=== PATIENT | male | born 1955 | race Caucasian/White ===

== ENCOUNTER 2016-06-06 08:30 | Inpatient (IN) | payer OTHER, BC ==
--- NOTE | 2016-06-02 15:26 | EKG ---
[facility] [address] [place] [address] Test Date: 2016-06-02 Test Time: 15:04:59 Pat Name: LULY MCELROY Department: Room: Gender: M [employer] Worker: : 1955 Requested By: SID MOSLEY Order Number: [id number] Reading MD: Americo Begum Measurements Intervals [place] Rate: 77 P: 48 MA: 150 QRS: 49 QRSD: 90 T: 50 QT: 370 QTc: 420 Interpretive Statements SINUS RHYTHM Electronically Signed On 06-13-2016 9:22:11 HEADING MAKER by Americo Begum
[~2016-06-06] VITALS: Ht 175.3 cm; Wt 89.4 kg
[~2016-06-06 08:30] MED LIST: ALBU8.5H6; ASPI-482; ATOR10TA; BIOT25005 PO; FLUT1DIS3; FLUT1DIS3 IH; GLIM2TAB2 PO; LISI10TA2; METF850T2; METH-38 PO; OXYC30TA21 PO; OXYC5CAP3 PO; PIOG1TAB15 PO; TIZA4TAB PO
[2016-09-16] MEDS ORDERED: SITA50TA PO (12:09)
[2016-09-16] MEDS ORDERED: OXYC1TAB9 PO (12:09)
[2016-09-16] MEDS ORDERED: MAGN400O4 PO (12:09)
[2016-09-16] MEDS ORDERED: METF-620 PO (12:09)
[2016-09-20] VITALS (10 sets, daily range): BP systolic 125–136; BP diastolic 67–76
[2016-09-20] MEDS ORDERED: BACITRACIN 50,000 UNIT in IV NORMAL SALINE 1000ML BAG 1,000 ML IRR ONE (06:00)
[2016-09-20] MEDS ORDERED: LIDOCAINE 1%/EPI 1:100,000 20 ML VIAL. ONE (06:49)
[2016-09-20] MEDS ORDERED: GELATIN SPONGE SIZE 100. ONE (06:49)
[2016-09-20] MEDS ORDERED: THROMBIN TOPICAL 20,000 UNIT SPRAY.SYRN KIT TP ONE (06:49)
[2016-09-20] MEDS ORDERED: BUPIVACAINE 0.5% 50 ML VIAL. ONE (06:49)
[2016-09-20] MEDS ORDERED: IV RINGERS,LACTATED 1000ML 1,000 ML IV SCH (07:00)
[2016-09-20] MEDS ORDERED: fentaNYL PF VIAL 100 MCG/2 ML VIAL IV PRN (07:00)
[2016-09-20] MEDS ORDERED: PROCHLORPERAZINE 10 MG/2 ML VIAL. IV PRN (07:00)
[2016-09-20] MEDS ORDERED: ONDANSETRON PF 4 MG/2 ML VIAL. IV PRN ×2 (07:00→15:00)
[2016-09-20] MEDS ORDERED: LIDOCAINE 1% 1 ML SYRINGE. ID PRN (07:00)
[2016-09-20 07:18] LABS: CALCIUM 9.3 mg/dL (8.5-10.1); CREATININE 1.1 mg/dL (0.7-1.3)
[2016-09-20 07:19] LABS: GFR 68.1; POTASSIUM 3.7 mmol/L (3.5-5.1)
[2016-09-20 07:24] LABS: ALBUMIN 3.6 g/dL (3.4-5.0); ALBUMIN/GLOBULIN RATIO 0.9 (1.0-1.7); TOTAL BILIRUBIN 0.4 mg/dL (0.2-1.0); TOTAL PROTEIN 7.5 g/dL (6.4-8.2)
[2016-09-20 07:25] LABS: BASO # 0.1 x10^3/uL (0.0-0.2); BASO % 1 % (0-3); EOS % 2 % (0-3); HEMATOCRIT 41.5 % (39.0-53.0); HEMOGLOBIN 13.5 g/dL (13.0-17.5); LYMPH # 2.6 x10^3/uL (1.0-4.8); LYMPH % 27 % (24-48); MEAN CORPUSCULAR HEMOGLOBIN 29 pg (25-35); MEAN CORPUSCULAR HGB CONC 33 g/dL (31-37); MEAN CORPUSCULAR VOLUME 90 fL (79-100); MONO % 9 % (0-9); NEUT % 61 % (31-73); PLATELET COUNT 240 x10^3/uL (140-400); RED CELL DISTRIBUTION WIDTH 13.2 % (11.5-14.5); WHITE BLOOD COUNT 9.6 x10^3/uL (4.0-11.0)
[2016-09-20 07:33] LABS: INR 1.1 (0.8-1.1); PROTHROMBIN TIME PATIENT 13.1 SEC (11.7-14.0)
[2016-09-20] MEDS ORDERED: PROPOFOL 100 ML IV ONE (07:55)
[2016-09-20] MEDS ORDERED: DESFLURANE > 120 MINUTES IH ONE (08:03)
[2016-09-20] MEDS ORDERED: ONDANSETRON PF 4 MG/2 ML VIAL. ONE (08:04)
[2016-09-20] MEDS ORDERED: MINERAL OIL/PETROLATUM,WHITE OPHTH OINT 3.5GM TUBE. ONE (08:04)
[2016-09-20] MEDS ORDERED: PROPOFOL 20 ML IV ONE (08:04)
[2016-09-20] MEDS ORDERED: ROCURONIUM 50 MG/5 ML VIAL. ONE (08:04)
[2016-09-20] MEDS ORDERED: DEXAMETHASONE SOD PHOS 20 MG/5 ML VIAL. ONE (08:04)
[2016-09-20] MEDS ORDERED: MIDAZOLAM HCL/PF 2 MG/2 ML VIAL. ONE (08:04)
[2016-09-20] MEDS ORDERED: REMIFENTANIL 2 MG VIAL. IV ONE ×2 (08:04→10:40)
[2016-09-20] MEDS ORDERED: fentaNYL PF VIAL 100 MCG/2 ML VIAL ONE ×2 (08:04→14:21)
[2016-09-20] MEDS ORDERED: LIDOCAINE 2% PF Vial for OR 5 ML VIAL. ONE (08:05)
[2016-09-20] MEDS ORDERED: 0.9 % SODIUM CHLORIDE 50 ML VIAL. IJ ONE (08:05)
--- NOTE | 2016-09-20 08:38 | RAD ---
CT of the lumbar spine without contrast, 09/20/2016: History: Back pain, radiculopathy, brain lab study Noncontrast scans were obtained with multiplanar reconstructions produced. The data was transferred to the operating room to aid in the patient's stereotactically guided surgery. The following findings are delineated: 1. The thecal sac throughout the lumbar spine is at the lower limits of normal in AP dimension, on a congenital basis. 2. At L4-5 there is moderate broad-based posterior disc bulging. There is a moderate density at and lateral to the left neural foraminal level compatible with protruding disc material versus scarring. There is mild posterior ligamentous thickening. The combination of findings is causing borderline central spinal stenosis with moderate left foraminal encroachment. 3. There is minimal posterior annular bulging at L5-S1. There are mild degenerative changes involving the facet joints. The central spinal canal and neural foramina are well maintained. 4. At L3-4 there is mild posterior disc bulging, more so on the left. There is only mild associated left foraminal narrowing. 5. No significant posterior disc bulge or protrusion is seen at L1-2 or L2-3. PQRS Compliance Statement: One or more of the following individualized dose reduction techniques were utilized for this examination: 1. Automated exposure control 2. Adjustment of the mA and/or kV according to patient size 3. Use of iterative reconstruction technique
[2016-09-20] MEDS ORDERED: PHENYLEPHRINE 10 MG/ML VIAL. ONE (09:24)
[2016-09-20] MEDS ORDERED: GLYCOPYRROLATE 1 MG/5 ML VIAL. ONE (09:40)
[2016-09-20] MEDS ORDERED: PROPOFOL 50 ML IV ONE ×2 (10:40→13:48)
[2016-09-20] MEDS ORDERED: ESMOLOL 100 MG/10 ML VIAL. IV ONE (12:37)
[2016-09-20] MEDS ORDERED: LABETALOL 20 MG/4 ML DISP.SYRIN. ONE (13:57)
--- NOTE | 2016-09-20 14:52 | PDOC ---
BRIEF OPERATIVE NOTE Date: September 20, 2016 Pre-Op Diagnosis recurrent disk herniation, lumbar stenosis, lumbar radiculopathy Post-Op Diagnosis same Procedure Performed Stereotactic left L4-5 laminectomy with foraminotomy and discectomy. Stereotactic posterolateral instrumented fusion L4-5 with anterior interbody fusion L4-5 via oblique lumbar interbody approach. Surgeon Teodoro Steward/Stewardess Wine none Anesthesia Type: General Blood Loss 50mL Specimens Obtained disk and decompression Findings stenosis in the lateral recess and neuroforamen left L4-5 due to scar tissue and disk material Complications none apparent Additional Remarks neuromonitoring remained baseline throughout the procedure SID MOSLEY MD September 20, 2016 14:52
[2016-09-20] MEDS: fentaNYL PF VIAL 100 MCG/2 ML VIAL IV PRN ×7 (14:59→20:53)
[2016-09-20] MEDS ORDERED: CALCIUM CARBONATE 500 MG TAB.CHEW PO PRN (15:00)
[2016-09-20] MEDS ORDERED: diphenhydrAMINE 50 MG/ML VIAL IV PRN (15:00)
[2016-09-20] MEDS ORDERED: MAG HYDROX/ALUMINUM HYD/SIMETH 30 ML ORAL.SUSP PO PRN (15:00)
[2016-09-20] MEDS ORDERED: oxyCODONE/APAP 7.5/325 1 TAB TABLET PO PRN (15:00)
[2016-09-20] MEDS ORDERED: NALOXONE 0.4 MG/ML VIAL. IV PRN (15:00)
[2016-09-20] MEDS ORDERED: ZOLPIDEM 5 MG TABLET. PO PRN (15:00)
[2016-09-20] MEDS ORDERED: diphenhydrAMINE HCL 25 MG CAPSULE PO PRN (15:00)
[2016-09-20] MEDS ORDERED: ACETAMINOPHEN 325 MG TABLET. PO PRN (15:00)
[2016-09-20] MEDS ORDERED: 0.9 % SODIUM CHLORIDE 10 ML DISP.SYRIN. IV PRN (15:00)
[2016-09-20] MEDS: MORPHINE SULFATE 2 MG/ML DISP.SYRIN. IV PRN ×3 (15:07→15:57)
[2016-09-20] MEDS ORDERED: INSULIN ASPART 100 UNIT/ML 10ML VIAL. SQ PRN (15:15)
[2016-09-20] MEDS: HYDROmorphone 2 MG/ML VIAL IV PRN ×4 (15:44→16:36)
[2016-09-20] MEDS: FERROUS SULFATE 325 MG TABLET. PO SCH (17:00)
[2016-09-20] MEDS: CALCIUM CARB/VIT D3 500/200 TABLET. PO SCH (17:00)
[2016-09-20] MEDS ORDERED: DEXTROSE 50% 25 GM / 50ML DISP.SYRIN. IV PRN ×2 (17:30)
[2016-09-20] MEDS: METHOCARBAMOL 750 MG TABLET PO SCH (20:51)
[2016-09-20] MEDS: DOCUSATE SODIUM 100 MG CAPSULE. PO SCH (21:00)
[2016-09-20] MEDS: SENNOSIDES/DOCUSATE 8.6/50MG TABLET. PO SCH (21:00)
[2016-09-20] MEDS ORDERED: ALBUTEROL SULFATE 2.5 MG/3 ML NEBU. NEB PRN (22:45)
[2016-09-21] MEDS: fentaNYL PF VIAL 100 MCG/2 ML VIAL IV PRN ×4 (00:25→08:16)
[2016-09-21 03:00] VITALS: BP 142/71
[2016-09-21] MEDS: oxyCODONE/APAP 7.5/325 1 TAB TABLET PO PRN ×2 (03:34→06:21)
[2016-09-21 06:00] VITALS: BP 124/64
[2016-09-21] MEDS: INSULIN ASPART 300 UNITS/3 ML INSULN.PEN SQ SCH ×3 (08:00→16:56)
[2016-09-21] MEDS: CALCIUM CARB/VIT D3 500/200 TABLET. PO SCH ×2 (08:00→16:26)
[2016-09-21] MEDS ORDERED: INSULIN ASPART 300 UNITS/3 ML INSULN.PEN SQ SCH (08:00)
[2016-09-21] MEDS: SENNOSIDES/DOCUSATE 8.6/50MG TABLET. PO SCH ×2 (08:16→20:14)
[2016-09-21] MEDS: LINAGLIPTIN 5 MG TABLET PO SCH (08:16)
[2016-09-21] MEDS: METHOCARBAMOL 750 MG TABLET PO SCH ×3 (08:16→20:15)
[2016-09-21] MEDS: DOCUSATE SODIUM 100 MG CAPSULE. PO SCH ×2 (08:16→20:15)
[2016-09-21] MEDS: FERROUS SULFATE 325 MG TABLET. PO SCH ×2 (08:16→16:26)
[2016-09-21] MEDS: MULTIVITAMIN with MINERAL TABLET. PO SCH (08:17)
--- NOTE | 2016-09-21 09:42 | PDOC ---
SUBJECTIVE Subjective Reports resolution of left leg pain. Reports bilateral thigh numbness. Reports incisional pain that is not completely controlled with present regimen. Back pain worse when in bed and better with ambulation. OBJECTIVE Vital Signs Vital Signs Date Time Temp Pulse Resp B/P (MAP) Pulse Ox O2 Delivery O2 Flow Rate FiO2 09/21/16 08:56 16 Room Air 09/21/16 08:45 16 Room Air 09/21/16 08:16 18 Room Air 09/21/16 08:00 Room Air 09/21/16 07:20 18 Nasal Cannula 3.0 09/21/16 06:21 20 92 Room Air 09/21/16 06:00 98.4 92 18 124/64 (84) 93 Room Air 98.4 09/21/16 06:00 95 2.0 09/21/16 05:17 20 94 Nasal Cannula 2.0 09/21/16 04:35 92 09/21/16 03:34 20 92 Room Air 09/21/16 03:00 98.2 96 18 142/71 (94) 92 Room Air 98.2 09/21/16 02:46 20 94 Room Air 09/21/16 00:25 20 94 Room Air 09/20/16 22:51 94 Room Air 09/20/16 22:45 97.7 95 18 134/70 (91) 94 Room Air 97.7 09/20/16 21:45 97.0 95 16 136/76 (96) 97 Nasal Cannula 3.0 97.0 09/20/16 20:53 20 Nasal Cannula 2.0 09/20/16 20:45 97.2 91 18 134/70 (91) 96 Nasal Cannula 3.0 97.2 09/20/16 20:15 86 18 132/67 (88) 97 Nasal Cannula 3.0 09/20/16 19:45 97.2 92 18 133/71 (91) 96 Nasal Cannula 3.0 97.2 09/20/16 19:30 Nasal Cannula 3.0 09/20/16 19:14 20 96 Nasal Cannula 2.0 09/20/16 18:15 99 18 130/72 (91) 98 Nasal Cannula 2.0 09/20/16 17:45 98.0 125/70 (88) 98.0 09/20/16 17:36 Nasal Cannula 2.0 09/20/16 17:30 100 18 133/74 (93) 99 Nasal Cannula 2.0 09/20/16 17:20 Nasal Cannula 2.0 09/20/16 17:15 129/71 (90) 09/20/16 17:00 97.5 103 20 134/74 (94) 99 Nasal Cannula 2.0 97.5 09/20/16 16:36 16 96 Nasal Cannula 3.0 09/20/16 16:31 97 16 120/69 96 Nasal Cannula 3.0 09/20/16 16:16 98.8 101 18 138/83 96 Nasal Cannula 3.0 98.8 09/20/16 16:06 16 96 Nasal Cannula 3.0 09/20/16 16:01 100 18 138/78 94 Nasal Cannula 3 09/20/16 15:57 18 96 Nasal Cannula 3.0 09/20/16 15:54 18 95 Nasal Cannula 3.0 09/20/16 15:49 Nasal Cannula 3 09/20/16 15:46 100 18 140/76 95 Nasal Cannula 3 09/20/16 15:44 18 97 Nasal Cannula 2.0 09/20/16 15:31 98.8 103 18 132/74 95 Nasal Cannula 2 98.8 09/20/16 15:27 18 94 Room Air 09/20/16 15:25 18 99 Room Air 09/20/16 15:18 18 99 Simple Mask 10.0 09/20/16 15:16 100 18 158/84 99 Simple Mask 10 09/20/16 15:07 18 99 Simple Mask 10.0 09/20/16 15:05 20 100 Simple Mask 10.0 09/20/16 15:01 98 18 155/95 99 Simple Mask 10 09/20/16 14:59 20 100 Simple Mask 10.0 09/20/16 14:46 98.6 103 20 167/96 99 Simple Mask 10 98.6 09/20/16 14:46 Mask 10 I & O Intake and Output 09/21/16 06:59 Intake Total 3070 ml Output Total 3375 ml Balance -305 ml Intake Oral 220 ml IV Total 2850 ml Output Urine Total 3325 ml Estimated Blood Loss 50 ml # Voids 1 PHYSICAL EXAM Physical Exam AAOx4, NAD, HARTMAN 5/5, dressing with sang stain ASSESSMENT/PLAN Assessment/Plan POD 1 decompression/fusion L4-5 -increase activities as able/PT/OT -adjusted pain regimen to optimize incisional pain control Problems: COMMENT Lab Laboratory Tests Test 09/20/16 14:53 09/20/16 16:54 09/20/16 20:43 09/21/16 06:23 Glucose (Fingerstick) 230 mg/dL (70-99) 215 mg/dL (70-99) 188 mg/dL (70-99) 189 mg/dL (70-99) SID MOSLEY MD September 21, 2016 09:42
[2016-09-21] MEDS ORDERED: oxyCODONE/APAP 10/325 1 TAB TABLET PO PRN (09:45)
[2016-09-21] MEDS ORDERED: MORPHINE SULFATE 4 MG/ML DISP.SYRIN. IV PRN (09:45)
[2016-09-21] MEDS ORDERED: MORPHINE SULFATE 2 MG/ML DISP.SYRIN. IV PRN (09:45)
[2016-09-21 11:09] VITALS: BP 130/70
[2016-09-21] MEDS: oxyCODONE/APAP 10/325 1 TAB TABLET PO PRN ×3 (12:09→20:16)
[2016-09-21 15:01] VITALS: BP 121/69
[2016-09-21 17:26] VITALS: BP 118/65
[2016-09-21 23:00] VITALS: BP 109/63
[2016-09-22] MEDS: oxyCODONE/APAP 10/325 1 TAB TABLET PO PRN ×2 (00:10→04:10)
[2016-09-22 03:03] VITALS: BP 119/70
[2016-09-22] MEDS: LINAGLIPTIN 5 MG TABLET PO SCH (07:45)
[2016-09-22] MEDS: SENNOSIDES/DOCUSATE 8.6/50MG TABLET. PO SCH ×2 (07:46→22:27)
[2016-09-22] MEDS: METHOCARBAMOL 750 MG TABLET PO SCH ×3 (07:46→22:26)
[2016-09-22] MEDS: FERROUS SULFATE 325 MG TABLET. PO SCH ×2 (07:52→16:06)
[2016-09-22] MEDS: CALCIUM CARB/VIT D3 500/200 TABLET. PO SCH ×2 (07:52→16:06)
[2016-09-22] MEDS: MULTIVITAMIN with MINERAL TABLET. PO SCH (07:53)
[2016-09-22] MEDS: INSULIN ASPART 300 UNITS/3 ML INSULN.PEN SQ SCH ×3 (07:53→17:00)
[2016-09-22] MEDS: DOCUSATE SODIUM 100 MG CAPSULE. PO SCH ×2 (07:56→22:26)
[2016-09-22] MEDS: oxyCODONE IR 5 MG TABLET PO PRN ×8 (09:05→22:27)
[2016-09-22] MEDS: MAGNESIUM HYDROXIDE 2,400 MG/30 ML ORAL.SUSP. PO PRN ×2 (09:05→19:00)
[2016-09-22 11:19] VITALS: BP 151/79
--- NOTE | 2016-09-22 12:07 | PDOC ---
SUBJECTIVE Subjective Late entry. Pt seen/examined approx 0830 09/22/16. Reports low back pain at incision, mild improved. Reports continued resolution of leg pain. Has worked with PT and reportedly did well with this. OBJECTIVE Vital Signs Vital Signs Date Time Temp Pulse Resp B/P (MAP) Pulse Ox O2 Delivery O2 Flow Rate FiO2 09/22/16 12:05 16 09/22/16 11:19 97.3 93 18 151/79 (103) 95 Room Air 97.3 09/22/16 09:05 20 09/22/16 08:00 Room Air 09/22/16 07:51 20 09/22/16 05:10 92 Room Air 3.0 09/22/16 04:10 92 Room Air 3.0 09/22/16 03:03 99.2 94 16 119/70 (86) 92 Room Air 99.2 09/22/16 00:10 18 97 Room Air 09/21/16 23:00 98.3 98 16 109/63 (78) 97 Room Air 98.3 09/21/16 21:20 18 09/21/16 20:16 18 Room Air 09/21/16 20:00 Room Air 3.0 09/21/16 17:26 99.4 86 18 118/65 (82) 97 Room Air 99.4 09/21/16 16:24 18 Room Air 09/21/16 15:01 97.9 93 20 121/69 (86) 96 Room Air 97.9 09/21/16 12:09 20 I & O Intake and Output 09/22/16 07:00 Intake Total 960 ml Output Total 450 ml Balance 510 ml Intake Oral 960 ml Output Urine Total 450 ml # Voids 4 PHYSICAL EXAM Physical Exam AAOx4, NAD, HARTMAN 09/02, incisions c/d/i, sensation intact LT ASSESSMENT/PLAN Assessment/Plan POD 2 lumbar decompression and fusion L4-5 -functionally doing well and continues to report resolution of pre-operative left leg pain -still with incisional pain not fully controlled with present regimen, incision sites look good -will adjust pain regimen - d/c when pain better controlled with oral regimen Problems: COMMENT Lab Laboratory Tests Test 09/21/16 16:52 09/21/16 20:15 09/22/16 07:11 09/22/16 11:04 Glucose (Fingerstick) 149 mg/dL (70-99) 148 mg/dL (70-99) 119 mg/dL (70-99) 117 mg/dL (70-99) SID MOSLEY MD September 22, 2016 12:07
[2016-09-22] MEDS ORDERED: BISACODYL 10 MG SUPP.RECT. PR PRN (16:00)
[2016-09-22 17:55] VITALS: BP 147/82
--- NOTE | 2016-09-22 19:21 | OP ---
DATE OF SURGERY: 09/20/2016 SURGEON: Thomas Mosley M.D. PREOPERATIVE DIAGNOSES: Recurrent lumbar disk herniation, lumbar stenosis and lumbar radiculopathy. POSTOPERATIVE DIAGNOSES: Recurrent lumbar disk herniation, lumbar stenosis and lumbar radiculopathy. ANESTHESIA: General. COMPLICATIONS: None intraprocedurally. PROCEDURE: Left lumbar 4-5 laminectomy with foraminotomy and diskectomy with a lumbar 4-5 posterolateral instrumented fusion utilizing autograft and allograft with lumbar 4-5 anterior interbody fusion via an oblique lumbar interbody approach utilizing a cage with allograft fusion substrate. Intraoperative use of microscope. Intraoperative use of stereotaxis with live neuro monitoring. INDICATIONS FOR THE PROCEDURE: The patient is a pleasant 60-year-old gentleman who had a previous far lateral diskectomy on the left lumbar 4-5 with resolution of left lower extremity pain. Over time, he has developed recurrence of this pain, has noted that he had adjacent stenosis more medially at lumbar 4-5 due to recurrent disk as well as scar tissue and adjacent neural foraminal stenosis. He has been refractory to multiple conservative treatments as well. Please refer to the patient chart for additional details. DESCRIPTION OF PROCEDURE: After informed consent was obtained, the patient was brought into the operating room. He was placed under general anesthesia. He was placed in the prone position on the Tad table. All pressure points were checked and padded appropriately. The lumbar region was prepped and draped in the usual sterile fashion. The local anesthetic was administered and the stereotactic array was attached percutaneously to the right iliac crest. A stereotactic 3D acquisition with the C-arm was obtained and this was fused to a prior stereotactic CT scan obtained prior to the procedure with good localization. The patient had a previous midline incision, which was reopened and extended slightly caudally to accommodate exposure for the fusion construct and decompression. Dissection was carried out with monopolar electrocautery through the avascular midline of the spinous processes of lumbar 4-5 and bilaterally across the lamina at these locations. A prior far lateral decompression was identified on the left and a careful dissection with curette was performed to identify the bony edges of the prior decompression. Stereotaxis was utilized as well as anatomical landmarks to plan the entry sites for pedicle screws bilaterally at lumbar 4 and bilaterally at lumbar 5. A pneumatic drill was utilized to decorticate the insertion site and a stereotactic awl was utilized with live neuro monitoring to produce the trajectory through the pedicles into the bodies bilaterally at lumbar 4 and bilaterally at lumbar 5. A ball tip probe was utilized to verify the integrity of the trajectory and the trajectories were further created with a tap. This was done with live neuro monitoring. Once the trajectories were tapped and verified with stereotaxis as well as gentle palpation with the ball tip probe, pedicle screws were instituted bilaterally at lumbar 4 and lumbar 5. NuVasive instrumentation was used on the left at lumbar 4 and on the right at lumbar 4, 6.5 x 50 mm screws were instituted. On the left at lumbar 5, a 6.5 x 45 mm screw was instituted and on the right at lumbar 5, a 6.5 x 40 mm screw was instituted. Prior to the institution of pedicle screws the adjacent lateral bony elements including the transverse processes were decorticated with a pneumatic drill. Bone marrow aspirate was taken from the left iliac crest utilizing stereotaxis. This was combined with allograft as a fusion substrate posterolaterally. This was instituted prior to the placement of 40 mm rods in each of screw construct. Upon completion of this, the left lumbar 4-5 laminectomy was performed with a pneumatic drill as well as a Kerrison rongeur. The underlying ligament was gently dissected free from the thecal sac and removed with a Kerrison rongeur. The laminectomy was carried out to the bony edge of the prior left L4-L5 far lateral decompression including a foraminotomy which required the adjacent facet to be taken down. Neural elements were identified and noted to be significantly incorporated with scar tissue. The scar tissue was gently dissected from the neural elements as able and removed with a Kerrison rongeur. Upon completion of this, the neural elements were noted to be well decompressed. A prominent disk annulus was identified and annulotomy was performed with 11-blade scalpel. Disk material was removed in a piecemeal fashion utilizing pituitary rongeur. Gentle dissection of disk material with a nerve hook was used to tease additional disk material posterolaterally and was removed with pituitary rongeur. Upon completion of this, the neural elements were noted to be very well decompressed, verified with direct visualization as well as gentle palpation with a Xander and a Lima ball probe. A 2 cm incision was planned laterally on the left after utilizing stereotaxis to plan an approach for oblique lumbar interbody graft placement. The stereotactic probe with the dilator was instituted in the trajectory anterior to the transverse process on the left at lumbar 4-5 to approach the disk space. Stimulation was instituted upon at the disk space and disk was noted to from the nerve based on the stimulation as well as direct visualization through the prior foraminotomy. The stereotactic probe was removed and a K-wire was instituted through the dilator and an additional dilator was passed over the K-wire into the disk space. A working channel was passed over the dilator after the K-wire was removed into the disk space and additional disk material was removed with pituitary rongeur as well as other instruments through the working channel. Once the diskectomy was complete, a trial was instituted into the disk space, a 9 mm trial was noted to be of appropriate size. Once this was complete, a PEEK interbody cage filled with allograft was instituted into the disk space utilizing live neuro monitoring, which remained baseline. The appropriate position of both the trial and the final interbody graft was verified with fluoroscopy. On completion of placement of the interbody graft and position verified with fluoroscopy, the graft was detached from the delivery system and left in the interbody space. The adjacent neural elements were again inspected to ensure adequate decompression. This was verified with direct visualization as well as gentle palpation with a Colquitt and a Lima ball. Upon completion of this, the posterior instrumentation was secured and final tightened with 40 mm rods in both screw heads and four set screws were instituted and torqued according to the nutrient management specialist's specification. Upon completion of this, fluoroscopy was utilized to verify appropriate position of the completed fusion construct including the posterolateral instrumentation in the interbody graft. Pristine hemostasis was achieved with FloSeal, cottonoids and some use of bipolar electrocautery. The wound was generously irrigated with antibiotic irrigation prior to the final closure. As an additional fusion substrate, the right lamina at lumbar 4-5 was decorticated with pneumatic drill and additional allograft bone that was remaining was instituted. Upon completion of these things, the muscles and fascia were then reapproximated with 0 Vicryl in a simple interrupted fashion. The subcutaneous tissues were reapproximated with 2-0 Vicryl in interrupted inverted fashion and the skin was reapproximated with 4-0 Vicryl in a running subcuticular fashion. The oblique incision was closed with 2-0 Vicryl in interrupted inverted fashion with 4-0 Vicryl in a running subcuticular fashion. The stereotactic reference array was detached and removed and the insertion sites were gently irrigated with antibiotic irrigation and reapproximated with Dermabond. At the end of the procedure, all needle and sponge counts were correct x 2. The patient was extubated in the operating room and taken to recovery in stable condition. There were no intraprocedural complications apparent. THOMAS MOSLEY MD DR: ARCENIO/ju JOB#: [id number] / [id number]
[2016-09-23] MEDS: oxyCODONE IR 5 MG TABLET PO PRN ×4 (01:50→11:32)
[2016-09-23 06:10] VITALS: BP 142/90
[2016-09-23] MEDS: FERROUS SULFATE 325 MG TABLET. PO SCH (07:40)
[2016-09-23] MEDS: CALCIUM CARB/VIT D3 500/200 TABLET. PO SCH (07:40)
[2016-09-23] MEDS: DOCUSATE SODIUM 100 MG CAPSULE. PO SCH (07:40)
[2016-09-23] MEDS: METHOCARBAMOL 750 MG TABLET PO SCH (07:40)
[2016-09-23] MEDS: LINAGLIPTIN 5 MG TABLET PO SCH (07:40)
[2016-09-23] MEDS: SENNOSIDES/DOCUSATE 8.6/50MG TABLET. PO SCH (07:41)
[2016-09-23] MEDS: MULTIVITAMIN with MINERAL TABLET. PO SCH (07:41)
[2016-09-23] MEDS: INSULIN ASPART 300 UNITS/3 ML INSULN.PEN SQ SCH ×2 (07:44→11:51)
--- NOTE | 2016-09-23 10:58 | PDOC ---
SUBJECTIVE Subjective Incisional pain better controlled. Was able to sleep more last night. Reports continued resolution of left leg pain. Has been ambulating frequently around unit. Had a bm. OBJECTIVE Vital Signs Vital Signs Date Time Temp Pulse Resp B/P (MAP) Pulse Ox O2 Delivery O2 Flow Rate FiO2 09/23/16 08:20 Room Air 09/23/16 07:40 Room Air 09/23/16 06:10 98.1 74 20 142/90 (107) 96 Room Air 98.1 09/23/16 06:09 20 Room Air 09/23/16 05:03 20 Room Air 09/23/16 01:50 18 Nasal Cannula 09/22/16 22:27 20 95 Room Air 09/22/16 20:30 Room Air 09/22/16 17:55 98.7 102 20 147/82 (103) 95 Room Air 98.7 09/22/16 15:57 95 Room Air 3.0 09/22/16 15:00 Room Air 09/22/16 15:00 20 09/22/16 14:01 20 09/22/16 12:05 16 09/22/16 11:19 97.3 93 18 151/79 (103) 95 Room Air 97.3 I & O Intake and Output 09/23/16 06:59 Intake Total 1120 ml Balance 1120 ml Intake Oral 1120 ml # Voids 10 PHYSICAL EXAM Physical Exam AAOx4, NAD, HARTMAN 5/5, sensation intact LT, dressing with some ss stain, otherwise dry/intact ASSESSMENT/PLAN Assessment/Plan POD 3 lumbar decompression/fusion L4-5 -overall continues to recover well -pain regimen adequate per pt -d/c home today -discussed continued aggressive bowel regimen upon d/c -rx provided as well -f/u 2 weeks with NS [phone] Problems: COMMENT Lab Laboratory Tests Test 09/22/16 11:04 09/22/16 16:46 09/23/16 06:09 Glucose (Fingerstick) 117 mg/dL (70-99) 141 mg/dL (70-99) 123 mg/dL (70-99) SID MOSLEY MD September 23, 2016 10:58
[2016-09-23 11:37] VITALS: BP 146/87
[2016-09-23] MEDS ORDERED: OXYC5TAB PO (11:42)
[2016-09-23] MEDS ORDERED: METH-38 PO (11:43)
[2016-09-23] MEDS ORDERED: SENN8.6T99 PO (11:46)
--- NOTE | 2016-09-23 16:26 | PATHOLOGY ---
PATHOLOGY REPORT * * * * * * * * FINAL DIAGNOSIS: Segments of fibrocartilaginous, fibroadipose, and skeletal muscle tissue and bone, lumbar disc and decompression: - Focal degenerative changes of fibrocartilaginous tissue. COMMENT: There is no evidence of an acute inflammatory process or malignancy. REPORT ELECTRONICALLY SIGNED BY: Dany Barnard M.D. DATE/TIME: 09/23/2016 16:25 * * * * * * * * GROSS PATHOLOGY: Received in formalin labeled "Scotty Mcelroy, lumbar decompression and disc," are multiple segments of barnhart rubbery and grated tissue measuring 3.5 x 3.2 x 0.8 cm in aggregate dimensions. The tissue is submitted representatively in cassette A1. (SNA; 09/22/2016) INITIAL CPT CODE(S): A; 91186 Professional services performed by [facility] [place] [address] Technical services performed by [facility] at [address] [place] [address], [facility] [address], [place] [address]. SPECIMEN(S) RECEIVED: A.Lumbar decompression and disc CLINICAL HISTORY: Low back pain, lumbar radiculopathy PATIENT: SCOTTY MCELROY /AGE: 7 1955 (Age: 60) PATIENT #: [id number] ALT CASE #: SPECIMEN COLLECTION DATE: 09/20/2016 SPECIMEN RECEIVED DATE: 09/21/2016 [facility] - [address] [place] [address] - PHONE: [phone] * * * END OF REPORT * * *
== END 2016-09-23 12:30 | disposition home or self-care (01) | DRG 455 ==
LOC: OPSVCIP 09-20 06:30 → 4 SOUTHEST 09-20 16:50
PROVIDERS: ADMIT Neurological Surgery; ATTEND Neurological Surgery
PROC: 0SG0071 Fusion of Lumbar Vertebral Joint with Autologous Tissue Substitute, Posterior Approach, Posterior Column, Open Approach (ICD-10-PCS; 2016-09-20)
PROC: 0SG00A0 Fusion of Lumbar Vertebral Joint with Interbody Fusion Device, Anterior Approach, Anterior Column, Open Approach (ICD-10-PCS; 2016-09-20)
PROC: 07DR3ZZ Extraction of Iliac Bone Marrow, Percutaneous Approach (ICD-10-PCS; 2016-09-20)
PROC: 4A11X4G Monitoring of Peripheral Nervous Electrical Activity, Intraoperative, External Approach (ICD-10-PCS; 2016-09-20)
PROC: 0SB20ZZ Excision of Lumbar Vertebral Disc, Open Approach (ICD-10-PCS; principal; 2016-09-20 08:30)
DX: M48.06 Spinal stenosis, lumbar region (principal); M51.16 Intervertebral disc disorders with radiculopathy, lumbar region; Z79.899 Other long term (current) drug therapy; Z79.1 Long term (current) use of non-steroidal anti-inflammatories (NSAID); J45.909 Unspecified asthma, uncomplicated
CPT/HCPCS: 36415; 72131; 76000; 80053; 82962; 83036; 85027; 85610; 85730; 86850; 86900; 86901; 87641; 88304; 93005; 94250; 94640; C1713; C1893; J0690; J0780; J1100; J1170; J1815; J2250; J2270; J2405; J2704; J3010; J3490; J7030; J7120; 97110; 97116

== ENCOUNTER → 2016-09-29 | Outpatient (CLI) | payer OTHER, BC ==
[2016-09-23 11:37] VITALS: BP 146/87
[~2016-09-29] MED LIST changes: +MAGN400O4 PO; +METF-620 PO; +OXYC1TAB9 PO; +OXYC5TAB PO; +SENN8.6T99 PO; +SITA50TA PO
--- NOTE | 2016-09-29 14:35 | RAD ---
Indication chronic pain. AP and lateral views of the lumbar spine were obtained as well as a coned view targeted to the lumbosacral junction. Spinal fixation cage with interbody fusion is noted at L4-5. No complication is seen. No acute bony finding is apparent.
== END | disposition home or self-care (01) ==
LOC: RAD 13:57
PROVIDERS: ATTEND Neurological Surgery
DX: M54.9 Dorsalgia, unspecified (principal); G89.29 Other chronic pain
CPT/HCPCS: 72100

== ENCOUNTER 2016-10-18 21:30 | Emergency (ER) | payer OTHER, BC ==
[~2016-10-18] VITALS: Ht 175.3 cm; Wt 89.4 kg
[~2016-10-18 21:30] MED LIST changes: -BIOT25005 PO; +BIOT25006 PO; -MAGN400O4 PO; +MAGN400O7 PO; +OXYC5CAP PO; -OXYC5CAP3 PO; -PIOG1TAB15 PO; +PIOG1TAB24 PO
[2016-10-18 21:40] VITALS: BP 136/79
[2016-10-18] MEDS ORDERED: ONDANSETRON ODT 4 MG TAB.RAPDIS. PO ONE (22:15)
[2016-10-18] MEDS ORDERED: KETOROLAC TROMETHAMINE 30 MG/ML INJ. IM ONE (22:15)
[2016-10-18] MEDS ORDERED: HYDROmorphone 2 MG/ML VIAL IV ONE (22:15)
[2016-10-18] MEDS ORDERED: CYCLOBENZAPRINE 10 MG TABLET. PO ONE (22:15)
[2016-10-18] MEDS ORDERED: HYDROmorphone 2 MG/ML VIAL IM ONE (22:30)
[2016-10-18] MEDS ORDERED: CYCL10TA2 PO (22:39)
--- NOTE | 2016-10-18 22:40 | PHYS DOC ---
Past Medical History Past Medical History: Diabetes-Type II, Kidney Stone Past Surgical History: Cervical Fusion, Cholecystectomy Additional Past Surgical Histo: LASIK, KNEE SURGERY, CATERACTS, HEART CATH Alcohol Use: None Drug Use: None Adult General Chief Complaint Chief Complaint: LOWER BACK PAIN OR INJURY HPI HPI Patient is a 60 year old gentleman with a history significant for back pain is status post a L5 L4 spinal fusion on September [address] Mosley presents to the ER today secondary to worsening pain. Patient reports that the pain he is having currently is identical to the pain usually has in the same location however it' s more severe than usual. Patient was the pain is in his left hip region and left buttock. Patient denies any fevers shakes chills nausea vomiting diarrhea chest pain or shortness of breath. Patient reports she's taken 3 of his OxyContin as well as Valium without any significant relief of the discomfort. It has a history of hypertension and asthma status post cholecystectomy. Patient has no known drug allergies. Patient does not smoke or drink. No liver lung or kidney problems. Patient reports no increased stress or increased activity. Patient reports he is supposed to start 0 therapy next week. Patient denies any loss of bowel or bladder function. Patient has any paresthesias around his scrotum her rectal area or perineal region. Patient's physical exam is unremarkable. He is alert awake and oriented 3. Neurological exam was nonfocal. Patient's motor strength is 5 out of 5. Sensory to light touch and pinprick. Patient has reproducible tenderness to palpation to his lower back and left side. Assessment and plan Acute exacerbation of chronic lower back pain. Patient's clinically hemodynamically stable. Patient will be discharged home on Flexeril. Patient feels much improved after the Dilaudid Flexeril and Toradol given in the ED. Review of Systems Review of Systems Constitutional: Denies fever or chills [] Eyes: Denies change in visual acuity, redness, or eye pain [] All other review systems are negative except as documented in the history of present illness portion.\ Current Medications Current Medications Current Medications Medications (Trade) Dose Ordered Sig/Thomas Start Time Stop Time Status Last Admin Dose Admin Cyclobenzaprine HCl (Flexeril) 10 mg 1X ONCE 10/18/16 22:15 10/18/16 22:16 DC 10/18/16 22:13 10 MG Hydromorphone HCl (Dilaudid) 1 mg 1X ONCE 10/18/16 22:30 10/18/16 22:31 DC 10/18/16 22:11 1 MG Ketorolac Tromethamine (Toradol) 30 mg 1X ONCE 10/18/16 22:15 10/18/16 22:16 DC 10/18/16 22:10 30 MG Ondansetron HCl (Zofran Odt) 4 mg 1X ONCE 10/18/16 22:15 10/18/16 22:16 DC 10/18/16 22:13 4 MG Allergies Allergies Allergies Coded Allergies Type Severity Reaction Last Updated Verified No Known Medication Allergies Allergy Unknown 09/20/16 Yes Physical Exam Physical Exam Constitutional: Well developed, well nourished, no acute distress, non-toxic appearance. [] HENT: Normocephalic, atraumatic, bilateral external ears normal, oropharynx moist, no oral exudates, nose normal. [] Eyes: PERRLA, EOMI, conjunctiva normal, no discharge. [] Neck: Normal range of motion, no tenderness, supple, no stridor. [] Cardiovascular:Heart rate regular rhythm, no murmur [] Lungs & Thorax: Bilateral breath sounds clear to auscultation [] Abdomen: Bowel sounds normal, soft, no tenderness, no masses, no pulsatile masses. [] Skin: Warm, dry, no erythema, no rash. [] Extremities: No tenderness, no cyanosis, no clubbing, ROM intact, no edema. [] Neurologic: Alert and oriented X 3, normal motor function, normal sensory function, no focal deficits noted. [] Psychologic: Affect normal, judgement normal, mood normal. [] Current Patient Data Vital Signs Vital Signs Date Time Temp Pulse Resp B/P (MAP) Pulse Ox O2 Delivery O2 Flow Rate FiO2 10/18/16 22:11 22 99 Room Air 10/18/16 21:40 98.2 105 136/79 (98) 98.2 EKG EKG [] Radiology/Procedures Radiology/Procedures [] Course & Med Decision Making Course & Med Decision Making Pertinent Labs and Imaging studies reviewed. (See chart for details) [] Dragon Disclaimer Dragon Disclaimer This electronic medical record was generated, in whole or in part, using a voice recognition dictation system. Departure Departure Impression: Primary Impression: Lumbar radiculopathy Disposition: HOME, SELF-CARE Condition: IMPROVED Referrals: NO PCP (PCP) SID MOSLEY MD Patient Instructions: Low Back Sprain with Rehab-[facility] Scripts Cyclobenzaprine Hcl (CYCLOBENZAPRINE HCL) 10 Mg Tablet 10 MG PO TID Y for MUSCLE PAIN, #20 TAB Prov: ANALY VEGA MD 10/18/16 ANALY VEGA MD Oct 18, 2016 22:40
== END 2016-10-18 22:57 | disposition home or self-care (01) ==
LOC: ER 21:30
DX: M54.16 Radiculopathy, lumbar region (principal); G89.29 Other chronic pain; M25.552 Pain in left hip; M54.89 Other dorsalgia; E11.9 Type 2 diabetes mellitus without complications; J45.909 Unspecified asthma, uncomplicated; I10 Essential (primary) hypertension; Z87.442 Personal history of urinary calculi; Z90.49 Acquired absence of other specified parts of digestive tract; Z98.1 Arthrodesis status
CPT/HCPCS: 96372; 99284; J1170; J1885; Q0162

== ENCOUNTER → 2016-10-31 | Outpatient (CLI) | payer OTHER, BC ==
[2016-10-18 21:40] VITALS: BP 136/79
[~2016-10-31] MED LIST changes: +CYCL10TA2 PO
--- NOTE | 2016-10-31 13:03 | RAD ---
Indication post lumbar fusion. AP and lateral views of the lumbar spine were obtained as well as a coned view targeted to the lumbosacral junction. Spinal fixation is noted at L4-5. No complication is seen. No acute bony finding is apparent. Vascular calcification is noted. IMPRESSION: Postop changes. No acute or unexpected finding seen
== END | disposition home or self-care (01) ==
LOC: RAD 12:06
PROVIDERS: ATTEND Neurological Surgery
DX: M54.5 Low back pain (principal)
CPT/HCPCS: 72100

== ENCOUNTER → 2016-11-16 | Outpatient (CLI) | payer OTHER, BC ==
[2016-10-18 21:40] VITALS: BP 136/79
[~2016-11-16] MED LIST changes: +GADOBUTROL 10 MMOL/10 ML VIAL IV ONE
--- NOTE | 2016-11-16 16:31 | KCIC ---
MRI Lumbar Spine without and with contrast History: Lumbar radiculopathy, left foot pain, previous surgeries, left foot numbness Technique: Multiplanar, multi sequential pre and postcontrast MR imaging was performed of the lumbar spine. Contrast: 8 cc Gadavist Comparison: July 03, 2015 Findings: There has been interval posterolateral fusion at L4-5 which there are now bilateral pedicle screws. Exam does not accurately evaluate integrity of hardware. There is now interbody graft L4-5. Lumbar vertebral body stature and AP alignment are maintained. Conus terminates at L1-2. There is mild fatty filum terminale. There is no nodular enhancement of the conus or cauda equina or in the intervertebral disc spaces. There is minimal edema of the L4-5 endplates about the interbody graft. There is overall mild narrowing of the L4-5 intervertebral disc space. L3-L4: Spinal canal and neural foramina are adequate. There is again negligible disc osteophyte complex. L4-L5: There is negligible disc osteophyte complex and bulge. There again has been partial left facetectomy. There is enhancing fibrosis at the anterior and inferior aspect of the left neural foramen with partial effacement of perineural fat surrounding the exiting left L4 nerve root. There is a shallow left extraforaminal protrusion without significant displacement of the exiting left L4 nerve root. Right neural foramen is not significantly narrowed. There is minimal narrowing of the far lateral recess as seen previously. L5-S1: Neural foramina and spinal canal are adequate. Impression: 1. There has been posterolateral fusion at L4-5. There is mild narrowing of the far left lateral recess at L4-5. There is enhancing fibrosis at the inferior margin of the left L4-5 neural foramen. There is shallow left extraforaminal protrusion L4-5 without significant displacement exiting left L4 nerve root. Electronically signed by: Maurisio Bryant MD (11/16/2016 4:28 PM) [email or web address]
== END | disposition home or self-care (01) ==
LOC: KCIC MRI 14:28
PROVIDERS: ATTEND Neurological Surgery
DX: M51.16 Intervertebral disc disorders with radiculopathy, lumbar region (principal)
CPT/HCPCS: 72158; 82565; A9585

== ENCOUNTER → 2017-01-30 | Outpatient (CLI) | payer OTHER, BC ==
[~2017-01-30] MED LIST changes: -GADOBUTROL 10 MMOL/10 ML VIAL IV ONE; -OXYC5TAB PO; +OXYC5TAB95 PO
--- NOTE | 2017-01-30 13:08 | RAD ---
Lumbar spine x-rays Indication: Lumbar fusion in August 2016 with complains of left anterior leg pain and numbness since surgery. Technique: 3 views of the lumbar spine Comparison: Previous study from 10/31/2016 Findings: 5 lumbar vertebral bodies. The lumbar spine is in normal anatomic alignment. Postsurgical changes from posterior fusion of L4-L5 vertebral bodies. There is no periprostatic lucency suggest loosening or fracture. No significant intervertebral disc space narrowing. Mild sclerosis of the endplates noted at multiple levels with small anterior osteophytes suggesting degenerative disc disease. Bilateral SI joints are within normal limits. Right upper quadrant clips suggesting cholecystectomy. Impression: Post surgical changes from L4-L5 posterior fusion. Mild multilevel degenerative disc disease. No significant change when compared to prior study from 10/31/2016. Please see report on MRI lumbar spine from 11/16/2016.
== END | disposition home or self-care (01) ==
LOC: RAD 12:37
PROVIDERS: ATTEND Neurological Surgery
DX: M51.16 Intervertebral disc disorders with radiculopathy, lumbar region (principal); R20.0 Anesthesia of skin
CPT/HCPCS: 72100

== ENCOUNTER → 2017-06-15 | Outpatient (CLI) | payer BC | END | disposition home or self-care (01) | LOC: RAD 11:12 | DX: M47.896 Other spondylosis, lumbar region (principal); M54.5 Low back pain; Z98.890 Other specified postprocedural states | CPT/HCPCS: 72100 ==

== ENCOUNTER → 2019-03-14 | Outpatient (CLI) | payer BC ==
[~2019-03-14] MED LIST changes: -GLIM2TAB2 PO; +GLIM2TAB3 PO; +IOHEXOL 180 MG/ML 10 ML VIAL. IT ONE; +LIDOCAINE 1% Multi-Dose 20 ML VIAL. ID ONE; -METF-620 PO; +METF10007 PO; -METF850T2; +METF850T8; +OXYC-411 PO; -OXYC1TAB9 PO; +OXYC5TAB4 PO; -OXYC5TAB95 PO; -TIZA4TAB PO; +TIZA4TAB2 PO
--- NOTE | 2019-03-14 16:05 | KCIC ---
CT lumbar spine exam History: Low back pain, left lumbar radiculopathy, previous back surgeries Technique: CT imaging was performed of the lumbar spine after injection for lumbar myelogram. Multiplanar reconstruction images are submitted. Exposure: One or more of the following individualized dose reduction techniques were utilized for this examination: 1. Automated exposure control 2. Adjustment of the mA and/or kV according to patient size 3. Use of iterative reconstruction technique. Comparison: November 16, 2016 Findings: There are bilateral pedicle screws L5 and L4 attached to vertical rods. There is L4-5 interbody graft although interbody fusion not apparent. Lumbar vertebral body stature is overall maintained. There is negligible anterior spondylolisthesis at L4-5. Conus terminates near L1-L2. There is mild lumbar levoscoliosis centered near L4-5. There is scattered atherosclerotic calcification of the abdominal aorta. T12-L1: Spinal canal and the neural foramina are adequate. L1-L2: Spinal canal and the neural foramina are adequate. There is mild facet degenerative change. L2-L3: Neural foramina and spinal canal are adequate. There is mild facet degenerative change. L3-L4: There is mild facet degenerative change. Spinal canal is adequate. Neural foramina are overall adequate. L4-L5: Spinal canal is adequate. There is postsurgical defect of the far left lateral lamina and facet. There is density in the inferior left neural foramen asymmetric with the right best seen image 50 series 4, not separable from the exiting left L5 nerve root. However appearance is fairly similar, again apparently protrusion in the very proximal left extraforaminal region near the undersurface of the exiting left L4 nerve root. There is mild narrowing of the left neural foramen due to facet and osteophyte. Right neural foramen is overall adequate. L5-S1: Spinal canal and the neural foramina are adequate. There is mild right facet hypertrophic change. Impression: 1. There is posterolateral fusion hardware and interbody graft at L4-5. There is no significant lumbar spinal stenosis. There is some density in the inferior left neural foramen inseparable from the exiting left L4 nerve root, uncertain if component of fibrosis or somewhat dilated nerve root, also apparently component of shallow protrusion in the very proximal left L4-5 extraforaminal region. There is mild narrowing of the left L4-5 neural foramen in part from facet osteophyte. There is mild lumbar levoscoliosis. Electronically signed by: Maurisio Bryant MD (03/14/2019 4:02 PM) [email or web address]
--- NOTE | 2019-03-15 07:54 | KCIC ---
Lumbar Myelogram History: Low back pain, left lumbar radiculopathy, previous surgeries Technique: Patient was informed of the risks of the procedure to include pain, infection, bleeding, seizures, nerve root injury, and allergic reaction to the contrast. All questions were answered. Patient signed a written consent form for a lumbar myelogram. The patient was placed in a prone oblique position on the fluoroscopy table. External site of the lower back was prepped and draped in the usual sterile fashion. Betadine was utilized for cleansing solution. 1% lidocaine was utilized for local anesthesia at the anticipated site of puncture right L2-3 interlaminar space. A 19-gauge guiding needle was advanced into the soft tissues. Through the guiding needle, a 25 gauge Oren needle was advanced until there was return of cerebral spinal fluid. Approximately 15 cc of Omnipaque 180 were then injected during fluoroscopic visualization. The needles were removed. Fluoroscopic spot images including standing images were acquired of the lumbar spine. The patient was then transferred to the CT department for CT examination of the lumbar spine. There were no immediate complications. Fluoroscopy time: 1 minute 6 seconds, 14 images Findings: There was no evidence of myelographic block. There is intact posterolateral fusion hardware with bilateral pedicle screws attached to vertical rods at L4-5, also L4-5 interbody graft. There is negligible anterior spondylolisthesis at L4-5 with flexion. There is very minimal anterior extradural defect at L4-5. There is atherosclerotic calcification of the abdominal aorta. Impression: 1. There is intact posterolateral fusion hardware at L4-5, also L4-5 interbody graft. There is negligible anterior spondylolisthesis at L4-5 with flexion. There is very minimal anterior extradural defect at L4-5. Electronically signed by: Maurisio Bryant MD (03/15/2019 7:51 AM) [email or web address]
--- NOTE | 2019-03-15 11:00 | KCIC ---
Examination: LUMBAR SPINE MIN 4V History: Low back pain, lumbar radiculopathy Comparison/Correlation: 06/15/2017 lumbar spine 3 view x-ray exam Findings: Total of 5 lumbar spine x-ray images were obtained including flexion and extension images. AP view, neutral lateral view, a neutral L5-S1 spot view were provided. Rods and associated pedicle screws are present at the L4-5 level. Interbody graft at this level is also present. Vertebral body heights are adequate. Alignment on flexion and extension imaging is mostly unremarkable. Minimal retrolisthesis of L3 in relation L4 is noted on flexion imaging as compared to the neutral and extension view. No fracture or bony destruction. There are right upper quadrant surgical clips. Impression: Minimal anterolisthesis of L3 in relation to L4 on flexion imaging. No significant change upon correlation with 06/15/2017 lumbar spine 3 view X ray exam. Electronically signed by: Pino Pearson MD (03/15/2019 10:57 AM) [facility]
== END | disposition home or self-care (01) ==
LOC: KCIC 13:39
PROVIDERS: ATTEND Neurological Surgery
DX: M51.16 Intervertebral disc disorders with radiculopathy, lumbar region (principal); M48.061 Spinal stenosis, lumbar region without neurogenic claudication; M25.78 Osteophyte, vertebrae; M43.16 Spondylolisthesis, lumbar region; M89.38 Hypertrophy of bone, other site; I70.0 Atherosclerosis of aorta; Z98.1 Arthrodesis status
CPT/HCPCS: 72110; 72132; 72265; Q9965

== ENCOUNTER 2019-09-03 08:10 | Emergency (ER) | payer BC ==
[~2019-09-03] VITALS: Ht 175.3 cm; Wt 90.0 kg
[~2019-09-03 08:10] MED LIST changes: -GLIM2TAB3 PO; +GLIM2TAB7 PO; -IOHEXOL 180 MG/ML 10 ML VIAL. IT ONE; -LIDOCAINE 1% Multi-Dose 20 ML VIAL. ID ONE
[2019-09-03 08:55] LABS: BASO # 0.1 x10^3/uL (0.0-0.2); BASO % 1 % (0-3); EOS # 0.4 x10^3/uL (0.0-0.7); EOS % 4 % (0-3); HEMOGLOBIN 14.9 g/dL (13.0-17.5); LYMPH # 2.3 x10^3/uL (1.0-4.8); LYMPH % 22 % (24-48); MEAN CORPUSCULAR HEMOGLOBIN 30 pg (25-35); MEAN CORPUSCULAR HGB CONC 34 g/dL (31-37); MEAN CORPUSCULAR VOLUME 89 fL (79-100); MONO # 0.9 x10^3/uL (0.0-1.1); MONO % 8 % (0-9); NEUT # 6.9 x10^3/uL (1.8-7.7); NEUT % 65 % (31-73); PLATELET COUNT 290 x10^3/uL (140-400); RED BLOOD COUNT 4.94 x10^6/uL (4.30-5.70); WHITE BLOOD COUNT 10.6 x10^3/uL (4.0-11.0)
[2019-09-03 08:57] LABS: BILIRUBIN,URINE NEGATIVE (NEG); CLARITY,URINE CLEAR; COLOR,URINE YELLOW; NITRITE,URINE NEGATIVE (NEG); PROTEIN,URINE NEGATIVE (NEG-TRACE); UROBILINOGEN,URINE 0.2 mg/dL (0.2 mg/dL)
[2019-09-03] MEDS ORDERED: KETOROLAC 30 MG/ML VIAL. IVP ONE (09:00)
[2019-09-03 09:04] LABS: CALCIUM 8.8 mg/dL (8.5-10.1); CREATININE 1.2 mg/dL (0.7-1.3); POTASSIUM 4.2 mmol/L (3.5-5.1)
[2019-09-03 09:06] LABS: BACTERIA,URINE 0 /HPF (0-FEW); SQUAMOUS EPITHELIAL CELL,UR OCC /LPF; WBC,URINE OCC /HPF (0-4)
[2019-09-03 09:06] LABS: PROTHROMBIN TIME PATIENT 12.2 SEC (11.7-14.0)
[2019-09-03] MEDS ORDERED: MORPHINE SULFATE 4 MG/ML VIAL. ONE (09:07)
[2019-09-03 09:10] LABS: ALBUMIN 3.9 g/dL (3.4-5.0); ALBUMIN/GLOBULIN RATIO 1.1 (1.0-1.7); TOTAL BILIRUBIN 0.4 mg/dL (0.2-1.0); TOTAL PROTEIN 7.6 g/dL (6.4-8.2)
--- NOTE | 2019-09-03 09:23 | RAD ---
Examination: CT of the abdomen pelvis without contrast HISTORY: History of left flank pain COMPARISON: 03/31/2013 TECHNIQUE: Axial CT images of the abdomen pelvis were performed without contrast. Coronal and sagittal reformats are performed Exposure: One or more of the following individualized dose reduction techniques were utilized for this examination: 1. Automated exposure control 2. Adjustment of the mA and/or kV according to patient size 3. Use of iterative reconstruction technique FINDINGS: Minimal right lung base atelectasis. No evidence of free air identified in the abdomen. The evaluation of the solid organs is limited due to lack of IV contrast. The evaluation of bowel is limited due to lack of oral contrast. The visualized noncontrasted liver, adrenals grossly appears unremarkable. Calcified granulomas identified in the spleen. Cholecystectomy changes. The stomach is mildly distended. The visualized pancreas grossly appears unremarkable. The small bowel is nondilated. Sigmoid colon diverticulosis. The visualized appendix grossly appears unremarkable. Urinary bladder is mildly distended. 3 mm intrarenal collecting system calculus identified in the left kidney. Mild left-sided hydronephrosis and hydroureter identified with a 5 mm calculus identified in the left uterovesical junction. Punctate 1 to 2 mm calculus identified in the right kidney. Moderate aortic atherosclerosis. Moderate degenerative changes thoracal lumbar spine. L4-L5 lumbar hardware identified. IMPRESSION: 1. 5 mm calculus identified in the left ureterovesical junction causing left-sided hydronephrosis and hydroureter. 2. Punctate bilateral intrarenal collecting system calculi. Electronically signed by: Tawanda Cerna MD (09/03/2019 9:19 AM) [id number]
[2019-09-03] MEDS ORDERED: ONDANSETRON PF 4 MG/2 ML VIAL. IVP ONE (09:30)
[2019-09-03] MEDS ORDERED: TAMSULOSIN 0.4 MG CAP.ER.24H. PO ONE (09:30)
[2019-09-03] MEDS ORDERED: fentaNYL PF VIAL 100 MCG/2 ML VIAL IVP ONE (09:30)
[2019-09-03] MEDS ORDERED: HYDROmorphone 2 MG/ML VIAL IV ONE ×2 (11:15→12:30)
[2019-09-03] MEDS ORDERED: IV NORMAL SALINE 1000ML BAG 1,000 ML IV ONE (12:15)
--- NOTE | 2019-09-03 13:11 | PHYS DOC ---
Past Medical History Past Medical History: Diabetes-Type II, Hypertension, Kidney Stone Past Surgical History: Cervical Fusion, Cholecystectomy Additional Past Surgical Histo: LASIK, KNEE SURGERY, CATERACTS, HEART CATH, ZURDO MBAR, R FOOT Smoking Status: Former Smoker Alcohol Use: None Drug Use: None General Adult EDM: Chief Complaint: URINARY RETENTION HPI: HPI: Patient is a 63 year old male who presented to ER today for evaluation of left side flank pain that radiated to his left groin area. Symptoms started last night. Patient tried to urinate, but very little come out. Patient history of kidney stone in the past. Patient denies any fever, no nausea vomiting. Pat ient denies any chest pain, no trouble breathing. Patient said he had not been exposed to anybody with POSITIVE COVID-19. Review of Systems: Review of Systems: Constitutional: Denies fever or chills. [] Eyes: Denies change in visual acuity. [] HENT: Denies nasal congestion or sore throat. [] Respiratory: Denies cough or shortness of breath. [] Cardiovascular: Denies chest pain or edema. [] GI: Positive for left flank pain, left groin area pain. No nausea or vomiting, no diarrhea. : Denies dysuria. Positive for scanty urination Musculoskeletal: Denies back pain or joint pain. [] Integument: Denies rash. [] Neurologic: Denies headache, focal weakness or sensory changes. [] Endocrine: Denies polyuria or polydipsia. [] Lymphatic: Denies swollen glands. [] Psychiatric: Denies depression or anxiety. [] Heart Score: Risk Factors: Risk Factors: DM, Current or recent (<one month) smoker, HTN, HLP, family history of CAD, obesity. Risk Scores: Score 0 - 3: 2.5% MACE over next 6 weeks - Discharge Home Score 4 - 6: 20.3% MACE over next 6 weeks - Admit for Clinical Observation Score 7 - 10: 72.7% MACE over next 6 weeks - Early Invasive Strategies Current Medications: Current Medications Medications (Trade) Dose Ordered Sig/Thomas Start Time Stop Time Status Last Admin Dose Admin Fentanyl Citrate (Fentanyl 2ml Vial) 50 mcg 1X ONCE 09/03/19 09:30 09/03/19 09:35 DC 09/03/19 09:39 50 MCG Hydromorphone HCl (Dilaudid) 1 mg 1X ONCE 09/03/19 12:30 09/03/19 12:31 DC 09/03/19 12:42 1 MG Ketorolac Tromethamine (Toradol 30mg Vial) 30 mg 1X ONCE 09/03/19 09:00 09/03/19 09:01 DC 09/03/19 09:00 30 MG Morphine Sulfate (Morphine Sulfate) 4 mg STK-MED ONCE 09/03/19 09:07 09/03/19 09:07 DC Ondansetron HCl (Zofran) 4 mg 1X ONCE 09/03/19 09:30 09/03/19 09:35 DC 09/03/19 09:38 4 MG Sodium Chloride 1,000 ml @ 1,000 mls/hr 1X ONCE 09/03/19 12:15 09/03/19 13:14 09/03/19 12:25 1,000 MLS/HR Tamsulosin HCl (Flomax) 0.4 mg 1X ONCE 09/03/19 09:30 09/03/19 09:35 DC 09/03/19 09:38 0.4 MG Allergies: Allergies: Allergies Coded Allergies Type Severity Reaction Last Updated Verified No Known Medication Allergies Allergy Unknown 09/20/16 Yes Physical Exam: PE: Constitutional: Well developed, well nourished, no acute distress, non-toxic appearance. [] HENT: Normocephalic, atraumatic, bilateral external ears normal, oropharynx moist, no oral exudates, nose normal. [] Eyes: PERRLA, EOMI, conjunctiva normal, no discharge. [] Neck: Normal range of motion, no tenderness, supple, no stridor. [] Cardiovascular:Heart rate regular rhythm, no murmur [] Lungs & Thorax: Bilateral breath sounds clear to auscultation [] Abdomen: Bowel sounds normal, soft, THERE IS tenderness TO PALPATION IN LLQ, no masses, no pulsatile masses. [] Skin: Warm, dry, no erythema, no rash. [] Back: No tenderness, there is left CVA tenderness. Extremities: No tenderness, no cyanosis, no clubbing, ROM intact, no edema. [] Neurologic: Alert and oriented X 3, normal motor function, normal sensory function, no focal deficits noted. [] Psychologic: Affect normal, judgement normal, mood normal. [] Current Patient Data: Labs: Laboratory Tests Test 09/03/19 08:12 09/03/19 08:26 Urine Collection Type Unknown Urine Color Yellow Urine Clarity Clear Urine pH 5.0 (<5.0-8.0) Urine Specific Hendricks 1.025 (1.000-1.030) Urine Protein Negative mg/dL (NEG-TRACE) Urine Glucose (UA) 100 mg/dL (NEG) Urine Ketones (Stick) Negative mg/dL (NEG) Urine Blood Large (NEG) Urine Nitrite Negative (NEG) Urine Bilirubin Negative (NEG) Urine Urobilinogen Dipstick 0.2 mg/dL (0.2 mg/dL) Urine Leukocyte Esterase Negative (NEG) Urine RBC 11-20 /HPF (0-2) Urine WBC Occ /HPF (0-4) Urine Squamous Epithelial Cells Occ /LPF Urine Bacteria 0 /HPF (0-FEW) Urine Mucus Mod /LPF White Blood Count 10.6 x10^3/uL (4.0-11.0) Red Blood Count 4.94 x10^6/uL (4.30-5.70) Hemoglobin 14.9 g/dL (13.0-17.5) Hematocrit 44.0 % (39.0-53.0) Mean Corpuscular Volume 89 fL (79-100) Mean Corpuscular Hemoglobin 30 pg (25-35) Mean Corpuscular Hemoglobin Concent 34 g/dL (31-37) Red Cell Distribution Width 13.0 % (11.5-14.5) Platelet Count 290 x10^3/uL (140-400) Neutrophils (%) (Auto) 65 % (31-73) Lymphocytes (%) (Auto) 22 % (24-48) L Monocytes (%) (Auto) 8 % (0-9) Eosinophils (%) (Auto) 4 % (0-3) H Basophils (%) (Auto) 1 % (0-3) Neutrophils # (Auto) 6.9 x10^3/uL (1.8-7.7) Lymphocytes # (Auto) 2.3 x10^3/uL (1.0-4.8) Monocytes # (Auto) 0.9 x10^3/uL (0.0-1.1) Eosinophils # (Auto) 0.4 x10^3/uL (0.0-0.7) Basophils # (Auto) 0.1 x10^3/uL (0.0-0.2) Prothrombin Time 12.2 SEC (11.7-14.0) Prothrombin Time INR 0.9 (0.8-1.1) Activated Partial Thromboplast Time 29 SEC (24-38) Sodium Level 141 mmol/L (136-145) Potassium Level 4.2 mmol/L (3.5-5.1) Chloride Level 102 mmol/L (98-107) Carbon Dioxide Level 30 mmol/L (21-32) Anion Gap 9 (6-14) Blood Urea Nitrogen 18 mg/dL (8-26) Creatinine 1.2 mg/dL (0.7-1.3) Estimated GFR (Cockcroft-Gault) 61.0 BUN/Creatinine Ratio 15 (6-20) Glucose Level 196 mg/dL (70-99) H Calcium Level 8.8 mg/dL (8.5-10.1) Total Bilirubin 0.4 mg/dL (0.2-1.0) Aspartate Amino Transferase (AST) 16 U/L (15-37) Alanine Aminotransferase (ALT) 29 U/L (16-63) Alkaline Phosphatase 89 U/L (46-116) Total Protein 7.6 g/dL (6.4-8.2) Albumin 3.9 g/dL (3.4-5.0) Albumin/Globulin Ratio 1.1 (1.0-1.7) Laboratory Tests 09/03/19 08:26 Laboratory Tests 09/03/19 08:26 Vital Signs: Vital Signs Date Time Temp Pulse Resp B/P (MAP) Pulse Ox O2 Delivery O2 Flow Rate FiO2 09/03/19 12:42 16 99 Room Air 09/03/19 11:30 72 09/03/19 08:24 98.6 181/89 (119) 98.6 EKG: EKG: [] Radiology/Procedures: Radiology/Procedures: [][facility] [address] [place] [address] IMAGING REPORT Signed PATIENT: LULY MCELROY ACCOUNT: [id number] : 1955 LOCATION: ER AGE: 63 SEX: M EXAM STATUS: REG ER ORD. PHYSICIAN: DEVAN PENNINGTON DO REASON: left flank pain PROCEDURE: CT ABDOMEN PELVIS WO CONTRAST Examination: CT of the abdomen pelvis without contrast HISTORY: History of left flank pain COMPARISON: 03/31/2013 TECHNIQUE: Axial CT images of the abdomen pelvis were performed without contrast. Coronal and sagittal reformats are performed Exposure: One or more of the following individualized dose reduction techniques were utilized for this examination: 1. Automated exposure control 2. Adjustment of the mA and/or kV according to patient size 3. Use of iterative reconstruction technique FINDINGS: Minimal right lung base atelectasis. No evidence of free air identified in the abdomen. The evaluation of the solid organs is limited due to lack of IV contrast. The evaluation of bowel is limited due to lack of oral contrast. The visualized noncontrasted liver, adrenals grossly appears unremarkable. Calcified granulomas identified in the spleen. Cholecystectomy changes. The stomach is mildly distended. The visualized pancreas grossly appears unremarkable. The small bowel is nondilated. Sigmoid colon diverticulosis. The visualized appendix grossly appears unremarkable. Urinary bladder is mildly distended. 3 mm intrarenal collecting system calculus identified in the left kidney. Mild left-sided hydronephrosis and hydroureter identified with a 5 mm calculus identified in the left uterovesical junction. Punctate 1 to 2 mm calculus identified in the right kidney. Moderate aortic atherosclerosis. Moderate degenerative changes thoracal lumbar spine. L4-L5 lumbar hardware identified. IMPRESSION: 1. 5 mm calculus identified in the left ureterovesical junction causing left-sided hydronephrosis and hydroureter. 2. Punctate bilateral intrarenal collecting system calculi. Electronically signed by: Tawanda Cerna MD (09/03/2019 9:19 AM) [id number] DICTATED and SIGNED BY: TAWANDA CERNA MD DATE: 09/03/19 0919 Course & Med Decision Making: Course & Med Decision Making Pertinent Labs and Imaging studies reviewed. (See chart for details) Patient is a 63-year-old male who was evaluated in the ER today due to left side abdominal pain, he was found to have kidney stone at the UVJ junction. Patient was able to urinate in the ED, his kidney function is normal. Patient will be discharged home, he will need to follow-up with her urologist. Patient is already on Percocet at home for back pain, he will be with prescribed Anaprox DS and Flomax for the kidney pain. Patient said he wants to go home and try to pass the stone at home. Love Disclaimer: Love Disclaimer: This electronic medical record was generated, in whole or in part, using a voice recognition dictation system. Departure Departure Impression: Primary Impression: Kidney stone on left side Disposition: HOME, SELF-CARE Condition: IMPROVED Referrals: ELLYN RIZZO DO (PCP) PLEASE CALL DR. ED JACKSON, UROLOGIST, PHONE NUMBER: [phone] for follow up this week. Patient Instructions: Kidney Stones Additional Instructions: Thank you for visiting our Emergency Department. We appreciate you trusting us with your care. If any additional problems come up don't hesitate to return to visit us. Please follow up with your primary care provider so they can plan additional care if needed and know about the problem that you had. If symptoms worsen come back to the Emergency Department. Any concerning symptoms that start such as chest pain, shortness of air, weakness or numbness on one side of the body, running high fevers or any other concerning symptoms return to the ER. TAKE YOUR PERCOCET AT HOME NEEDED FOR PAIN WELL. Scripts Tamsulosin Hcl (FLOMAX) 0.4 Mg Cap.er.24h 1 CAP PO DAILY, #20 CAP 11 Refills Prov: DEVAN PENNINGTON DO 09/03/19 Naproxen Sodium (ANAPROX DS) 550 Mg Tablet 1 TAB PO BID for pain for 15 Days, #30 TAB 0 Refills Prov: DEVAN PENNINGTON DO 09/03/19 DEVAN PENNINGTON DO September 03, 2019 13:11
[2019-09-03] MEDS ORDERED: NAPR-682 PO (13:19)
[2019-09-03] MEDS ORDERED: TAMS0.4C97 PO (13:19)
[2019-09-03 13:30] VITALS: BP 124/71
== END 2019-09-03 14:00 | disposition home or self-care (01) ==
LOC: ER 08:10
DX: N13.2 Hydronephrosis with renal and ureteral calculous obstruction (principal); R10.32 Left lower quadrant pain; R33.9 Retention of urine, unspecified; E11.9 Type 2 diabetes mellitus without complications; I10 Essential (primary) hypertension; Z90.49 Acquired absence of other specified parts of digestive tract; Z98.890 Other specified postprocedural states; Z87.891 Personal history of nicotine dependence; Z87.442 Personal history of urinary calculi
CPT/HCPCS: 36415; 74176; 80053; 81001; 85025; 85610; 85730; 96374; 96375; 96376; 99285; J1170; J1885; J2405; J3010; J7030

== ENCOUNTER 2020-01-16 09:07 | Emergency (ER) | payer BC ==
[~2020-01-16] VITALS: Ht 175.3 cm; Wt 87.6 kg
[~2020-01-16 09:07] MED LIST changes: +NAPR-682 PO; -OXYC-411 PO; +OXYC1TAB20 PO; +TAMS0.4C97 PO
--- NOTE | 2020-01-16 09:51 | PHYS DOC ---
Past Medical History Past Medical History: Diabetes-Type II, Hypertension, Kidney Stone, Other Additional Past Medical Histor: CHRONIC PAIN/SPINAL STENOSIS Past Surgical History: Cervical Fusion, Cholecystectomy Additional Past Surgical Histo: LASIK,KNEE SURGERY/FOOT/C-SPINE/BACK X 2 ,CATERACTS,HEART CATH,KIDNEY STONE Smoking Status: Former Smoker Alcohol Use: None Drug Use: None General Adult EDM: Chief Complaint: UPPER EXTREMITY PAIN HPI: HPI: 64-year-old male past medical history significant for diabetes, hypertension, chronic cervical and low back pain, presents to the ED with complaints of left arm pain described as [id number] that moves from his left anterior neck to shoulder down his arm x6 weeks stating "it's doing what it did before surgery." Now with decreased left hand (nondominant) sensation and numbness for the past 2 days. H/o cervical patient in 2001 by [facility], Dr. Turner. No new trauma to the neck. Patient states he talks oxycodone for his chronic neck pain- follows with pain management. No h/o CVA. Reports blurry vision with gabapentin jitteriness with Lyrica. H/o 2 lumbar surgeries. ROS: Denies any associated chest pressure or tightness, nausea, vomiting, trauma, weight loss, paralysis, saddle anesthesia, sore throat, cough, diaphoresis, night sweats, neck stiffness or headache. Review of Systems: Review of Systems: Constitutional: Denies fever or chills. [] Eyes: Denies change in visual acuity. [] HENT: Denies nasal congestion or sore throat. [] Respiratory: Denies cough or shortness of breath. [] Cardiovascular: Denies chest pain or edema. [] GI: Denies abdominal pain, nausea, vomiting, or diarrhea. [] : Denies dysuria. [] Musculoskeletal: Denies back pain or joint pain. [] Integument: Denies rash. [] Neurologic: Denies headache, Endocrine: Denies polyuria or polydipsia. [] Lymphatic: Denies swollen glands. [] Psychiatric: Denies depression or anxiety. [] Heart Score: Risk Factors: Risk Factors: DM, Current or recent (<one month) smoker, HTN, HLP, family history of CAD, obesity. Risk Scores: Score 0 - 3: 2.5% MACE over next 6 weeks - Discharge Home Score 4 - 6: 20.3% MACE over next 6 weeks - Admit for Clinical Observation Score 7 - 10: 72.7% MACE over next 6 weeks - Early Invasive Strategies Allergies: Allergies: Allergies Coded Allergies Type Severity Reaction Last Updated Verified No Known Medication Allergies Allergy Unknown 09/20/16 Yes Physical Exam: PE: Constitutional: Well developed, well nourished, no acute distress, non-toxic appearance. [] HENT: Normocephalic, atraumatic,no midline cervical ttp, cannot reproduce neck pain or radiculpathy, negative sterlings Eyes: EOMI, conjunctiva normal, no discharge. [] Neck: Normal range of motion, no tenderness, supple, no stridor. [] Cardiovascular:Heart rate regular rhythm, no murmur [] Lungs & Thorax: Bilateral breath sounds clear to auscultation [] Abdomen: Bowel sounds normal, soft, no tenderness, no masses, no pulsatile masses. [] Skin: Warm, dry, no erythema, no rash. [] Back: No tenderness, no CVA tenderness. [] Extremities: No tenderness, no cyanosis, no clubbing, ROM intact, no edema, full upper extremity radial pulses, 5 out of 5 equal upper extremity muscle strength Neurologic: Alert and oriented X 3, normal motor function, normal sensory function, no focal deficits noted. [] Psychologic: Affect normal, judgement normal, mood normal. [] Nexus criteria negative Current Patient Data: Vital Signs: Vital Signs Date Time Temp Pulse Resp B/P (MAP) Pulse Ox O2 Delivery O2 Flow Rate FiO2 01/16/20 09:09 98.6 17 198/90 (126) 100 Room Air 98.6 EKG: EKG: [] Sinus rhythm at 80 bpm, no axis deviation, normal intervals, no pathologic T wave inversions, no ST elevations or ST depressions, no pathologic Q waves Radiology/Procedures: Radiology/Procedures: IMAGING REPORT Signed PATIENT: LULY MCELROY ACCOUNT: [id number] : 1955 LOCATION: ER AGE: 64 SEX: M EXAM STATUS: REG ER ORD. PHYSICIAN: LIAN BARRAZA DO REASON: left arm pain-X 5-6 WKS H/O CERVICAL FUSION PROCEDURE: CT HEAD AND CERVICAL SPINE WO EXAM: CT head and cervical spine without contrast INDICATION: Left arm pain for 5-6 weeks. History of cervical fusion COMPARISON: None TECHNIQUE: Axial CT imaging through the head and cervical spine without intravenous contrast. Sagittal and coronal reformats of the cervical spine were obtained. One or more of the following individualized dose reduction techniques were utilized for this examination: 1. Automated exposure control 2. Adjustment of the mA and/or kV according to patient size 3. Use of iterative reconstruction technique. FINDINGS: CT head: The ventricles and sulci are normal. White-white matter differentiation is maintained. There is no intracranial hemorrhage, acute infarct, or mass lesion. Basal cisterns are clear. The skull and scalp are intact. Minimal mucosal thickening in the paranasal sinuses. Mastoid air cells are clear.. Globes and orbits are intact. CT cervical spine: No acute fracture. Alignment is normal. There are surgical changes of ACDF at C5-C6. Plate and screws are intact. Interbody graft is well incorporated. Mild disc space narrowing at C6-C7 and small marginal osteophytes throughout the cervical spine. Mild to moderate left and mild right foraminal narrowing at C5-C6 and mild left foraminal narrowing at C6-C7 related to uncovertebral joint proliferation. Mild facet arthrosis at C5-C6 and C6-C7. No bony canal narrowing. Prevertebral soft tissue is normal. There are calcifications in the carotid bifurcation. IMPRESSION: 1. No acute intracranial abnormality. 2. No acute osseous abnormality of the cervical spine. Uncomplicated anterior cervical fusion at C5-C6. 3. Mild to moderate left foraminal narrowing at C5-C6. Electronically signed by: Glenny Irwin MD (01/16/2020 11:03 AM) [id number] DICTATED and SIGNED BY: GLENNY IRWIN MD DATE: 01/16/20 1103 Course & Med Decision Making: Course & Med Decision Making Pertinent Labs and Imaging studies reviewed. 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 Muscle strength, reflexes and pulses, no upper extremity edema. Will benefit from nonemergent MRI as an outpatient. Reports he has an appointment with his neurosurgeon Dr. Crawford tomorrow morning. Also recommended patient to start NSAIDs and he will contact his pain management doctor regarding his opioid medications/increasing frequency. States he has muscle relaxers at home. Neuropathic medications he has an adverse effect to. Strict ED return precautions were given for paralysis facial droop or speech changes. Encouraged urgent outpatient follow-up with PMD and neurosurgery. Life-threatening processes were considered but are low suspicion at this time, given history and physical exam. Pt was educated on all prescription medications and adverse effects. All patient's questions were answered and pt was stable at time of discharge. Differential includes sarah's angina, peritonsillar abscess, retropharyngeal abscess, epiglottitis, bacterial tracheitis, uvulitis, sepsis, mastoiditis, traumatic injury, carotid/vertebral dissection, intracranial aneurysms or neurologic process, cord compression or VIDHYA. I spoken with the patient and her caregivers. I explained the patient's condition, diagnoses and treatment plan based on the information available to me at this time. I have answered the patient and her caregiver's questions and addressed any concerns. The patient and her caregivers have a good understanding of patient's diagnosis, condition and treatment plan as can be expected at this point. Vital signs have been stable. Patient's condition is stable and appropriate for discharge from the emergency department. Patient will pursue further outpatient evaluation with primary care physician or other designated or consulting physician as outlined in the discharge instructions. The patient and/or caregivers are agreeable to this plan of care and follow-up instructions have been explained in detail. The patient and/or caregivers have received these instructions in written form and have expressed an understanding of the discharge instructions. The patient and/or caregivers are aware that any significant change of condition or worsening of symptoms should prompt immediate return to this or the closest emergency department or call to 911. Love Disclaimer: Love Disclaimer: This electronic medical record was generated, in whole or in part, using a voice recognition dictation system. Departure Departure Impression: Primary Impression: Foraminal stenosis of cervical region Additional Impression: Neck pain Disposition: 01 HOME, SELF-CARE Condition: STABLE Referrals: ELLYN RIZZO DO (PCP) Patient Instructions: Cervical Radiculopathy Additional Instructions: Dr. Crawford or Geoffrey Caceres MD Primary Specialties Neurological Surgery [facility] Address: [address] [address] Justicifation of Admission Dx: Justifications for Admission: Justification of Admission Dx: N/A LIAN BARNHART DO Jan 16, 2020 09:51
[2020-01-16 09:54] LABS: BASO # 0.1 x10^3/uL (0.0-0.2); BASO % 1 % (0-3); EOS # 0.4 x10^3/uL (0.0-0.7); EOS % 4 % (0-3); HEMATOCRIT 41.4 % (39.0-53.0); LYMPH % 19 % (24-48); MEAN CORPUSCULAR HEMOGLOBIN 31 pg (25-35); MEAN CORPUSCULAR HGB CONC 34 g/dL (31-37); MEAN CORPUSCULAR VOLUME 90 fL (79-100); MONO # 0.8 x10^3/uL (0.0-1.1); MONO % 8 % (0-9); NEUT # 6.9 x10^3/uL (1.8-7.7); NEUT % 68 % (31-73); PLATELET COUNT 247 x10^3/uL (140-400); RED BLOOD COUNT 4.61 x10^6/uL (4.30-5.70); RED CELL DISTRIBUTION WIDTH 13.5 % (11.5-14.5); WHITE BLOOD COUNT 10.2 x10^3/uL (4.0-11.0)
--- NOTE | 2020-01-16 09:58 | EKG ---
[facility] [address] [place] [address] Test Date: 2020-01-16 Test Time: 09:28:23 Pat Name: LULY MCELROY Department: Room: Gender: M Cork Molder: : 1955 Requested By: LIAN BARRAZA Order Number: [id number] Reading MD: Measurements Intervals [place] Rate: 80 P: 55 CA: 164 QRS: 43 QRSD: 90 T: 39 QT: 354 QTc: 412 Interpretive Statements SINUS RHYTHM NORMAL ECG RI6.02 No previous ECG available for comparison
[2020-01-16 10:02] LABS: CALCIUM 9.5 mg/dL (8.5-10.1); CREATININE 0.9 mg/dL (0.7-1.3); GFR 84.7; POTASSIUM 4.5 mmol/L (3.5-5.1)
[2020-01-16 10:08] LABS: ALBUMIN 3.8 g/dL (3.4-5.0); ALBUMIN/GLOBULIN RATIO 1.1 (1.0-1.7); TOTAL BILIRUBIN 0.5 mg/dL (0.2-1.0); TOTAL PROTEIN 7.2 g/dL (6.4-8.2)
[2020-01-16] MEDS ORDERED: KETOROLAC 15 MG/ML VIAL. IVP ONE (10:30)
[2020-01-16] MEDS ORDERED: diazePAM 5 MG TABLET PO ONE (10:30)
--- NOTE | 2020-01-16 11:06 | RAD ---
EXAM: CT head and cervical spine without contrast INDICATION: Left arm pain for 5-6 weeks. History of cervical fusion COMPARISON: None TECHNIQUE: Axial CT imaging through the head and cervical spine without intravenous contrast. Sagittal and coronal reformats of the cervical spine were obtained. One or more of the following individualized dose reduction techniques were utilized for this examination: 1. Automated exposure control 2. Adjustment of the mA and/or kV according to patient size 3. Use of iterative reconstruction technique. FINDINGS: CT head: The ventricles and sulci are normal. White-white matter differentiation is maintained. There is no intracranial hemorrhage, acute infarct, or mass lesion. Basal cisterns are clear. The skull and scalp are intact. Minimal mucosal thickening in the paranasal sinuses. Mastoid air cells are clear.. Globes and orbits are intact. CT cervical spine: No acute fracture. Alignment is normal. There are surgical changes of ACDF at C5-C6. Plate and screws are intact. Interbody graft is well incorporated. Mild disc space narrowing at C6-C7 and small marginal osteophytes throughout the cervical spine. Mild to moderate left and mild right foraminal narrowing at C5-C6 and mild left foraminal narrowing at C6-C7 related to uncovertebral joint proliferation. Mild facet arthrosis at C5-C6 and C6-C7. No bony canal narrowing. Prevertebral soft tissue is normal. There are calcifications in the carotid bifurcation. IMPRESSION: 1. No acute intracranial abnormality. 2. No acute osseous abnormality of the cervical spine. Uncomplicated anterior cervical fusion at C5-C6. 3. Mild to moderate left foraminal narrowing at C5-C6. Electronically signed by: Glenny Irwin MD (01/16/2020 11:03 AM) [id number]
[2020-01-16 12:03] VITALS: BP 124/75
== END 2020-01-16 12:05 | disposition home or self-care (01) ==
LOC: ER 09:07
DX: M48.02 Spinal stenosis, cervical region (principal); M54.5 Low back pain; G89.29 Other chronic pain; M79.602 Pain in left arm; E11.9 Type 2 diabetes mellitus without complications; I10 Essential (primary) hypertension; Z87.442 Personal history of urinary calculi; Z90.49 Acquired absence of other specified parts of digestive tract; Z98.1 Arthrodesis status; Z87.891 Personal history of nicotine dependence
CPT/HCPCS: 36415; 70450; 72125; 80053; 84484; 85025; 93005; 96374; 99285; J1885

== ENCOUNTER → 2020-01-20 | Outpatient (CLI) | payer BC ==
[2020-01-16 12:03] VITALS: BP 124/75
[~2020-01-20] MED LIST changes: +IOHEXOL 300 MG/ML 50 ML VIAL. IT ONE; +LIDOCAINE 1% Multi-Dose 20 ML VIAL. ID ONE
--- NOTE | 2020-01-20 15:13 | KCIC ---
Cervical spine CT without contrast History: Cervical radiculopathy, history of fusion, left radiculopathy, numbness in fingers Technique: Noncontrast CT imaging was performed of the cervical spine. Multiplanar images are reviewed. Exposure: One or more of the following individualized dose reduction techniques were utilized for this examination: 1. Automated exposure control 2. Adjustment of the mA and/or kV according to patient size 3. Use of iterative reconstruction technique. Comparison: Noncontrast exam January 16, 2020 Findings: There is intact anterior fusion hardware C5-C6 with incorporated interbody graft at this level and degree of interbody fusion. There is moderate degenerative disc disease at C6-7, minimally at C3-4. Cervical vertebral body stature and AP alignment are maintained. Cervical cord caliber is within normal limits. Atlanto-axial distance is within normal limits, associated degenerative change. There is appropriate alignment of lateral masses of C1 relative to C2. Occipital condylar-C1 relationship is maintained. There is very mild cervical dextroscoliosis. There is approximate 0.8 cm hypodense lesion of the left thyroid gland, also likely more lateral focus about 0.5 cm. There is atherosclerotic calcification of the carotid arteries in the neck bilaterally. C2-3: Neural foramina and spinal canal are adequate. C3-4: There is mild left facet hypertrophic change. There is very mild bilateral uncovertebral degenerative change. There is very mild narrowing of the left neural foramen, right neural foramen and spinal canal adequate. C4-5: There is very shallow partially calcified posterior central protrusion. Central canal is adequate. There is mild facet degenerative change bilaterally. Neural foramina are adequate. C5-6: There are minimal posterior bridging osteophytes. Central canal is minimally narrowed about 9 to 10 mm. There is bilateral facet hypertrophic change, also left uncovertebral osteophytes. There is fairly severe narrowing of the left neural foramen, mild to moderate narrowing on the right. C6-7: There is broad posterior disc osteophyte complex. There is mild indentation upon the ventral thecal sac. Central canal is narrowed to about 9 to 10 mm. There is bilateral uncovertebral degenerative change somewhat greater on the left. There is [id number] bilateral facet degenerative change. Right neural foramen is adequate. There is moderate narrowing of the left neural foramen. C7-T1: Neural foramina and spinal canal are adequate. Impression: 1. There is intact anterior cervical fusion hardware at C5-C6, incorporated interbody graft at this level with interbody fusion. 2. There is mild spinal stenosis C5-6 and C6-7. 3. There is moderate C6-7 degenerative disc disease, minimally at C3-4. There is spondylosis at C6-7. 4. Facet and uncovertebral degenerative change contributes to fairly severe narrowing of the left C5-6 neural foramen, to a lesser degree on the right at C5-6 and on the left at C6-7. 5. There are some subcentimeter hypodense foci of the left thyroid gland. Electronically signed by: Maurisio Bryant MD (01/20/2020 3:10 PM) [id number]
--- NOTE | 2020-01-20 15:34 | KCIC ---
Cervical Myelogram History: Cervical radiculopathy, history of fusion, left radiculopathy, numbness of the fingers Technique: Patient was informed of the risks of the procedure to include pain, infection, bleeding, seizures, nerve root injury, and allergic reaction to the contrast. All questions were answered. Patient signed a written consent form for a cervical myelogram. The patient was placed in a prone oblique position on the flouroscopy table. External site of the lower back was prepped and draped in the usual sterile fashion. Betadine was utilized for cleansing solution. 1% lidocaine was utilized for local anesthesia at the anticipated site of puncture right L2-3 interlaminar space. A 19-gauge guiding needle was advanced into the soft tissues. Through the guiding needle, a 25 gauge Oren needle was advanced until there was return of cerebral spinal fluid. Approximately 10 cc of Omnipaque 300 were then injected during fluoroscopic visualization. The needles were removed. Patient was repositioned so as to allow for the flow of contrast into the cervical spine. Fluoroscopic spot images were acquired of the cervical spine, also lateral radiograph acquired. The patient was then transferred to the CT department for CT examination of the cervical spine. There were no immediate complications. Fluoroscopy time and number of images: 33 seconds; 7 images Comparison: January 16, [address] exam Findings: There was no evidence of myelographic block. There is again anterior cervical fusion hardware C5-C6, also C5-6 interbody graft. There is degree of cervical facet degenerative change. There are minimal anterior extradural defects C4-5 and C6-7 Impression: 1. There is intact anterior cervical fusion hardware C5-6. There are minimal anterior submitted for extradural defects at C4-5 and C6-7. Electronically signed by: Maurisio Bryant MD (01/20/2020 3:31 PM) [id number]
== END | disposition home or self-care (01) ==
LOC: KCIC 09:30
PROVIDERS: ATTEND Neurological Surgery
DX: M50.11 Cervical disc disorder with radiculopathy, high cervical region (principal); M50.123 Cervical disc disorder at C6-C7 level with radiculopathy; I10 Essential (primary) hypertension; E11.9 Type 2 diabetes mellitus without complications; Z87.891 Personal history of nicotine dependence; Z79.899 Other long term (current) drug therapy; Z79.82 Long term (current) use of aspirin; Z79.84 Long term (current) use of oral hypoglycemic drugs
CPT/HCPCS: 62302; 72126; J3490; Q9967